=== PATIENT | male | born 1930 | race Two or more races ===

== ENCOUNTER 2017-11-21 12:14 | Emergency (ER) | payer OTHER ==
[2017-11-21 12:38] LABS: BASO % 0 % (0-3); EOS % 0 % (0-3); HEMATOCRIT 34.6 % (39.0-53.0); HEMOGLOBIN 11.2 g/dL (13.0-17.5); LYMPH # 0.3 x10^3/uL (1.0-4.8); LYMPH % 5 % (24-48); MEAN CORPUSCULAR HEMOGLOBIN 29 pg (25-35); MEAN CORPUSCULAR HGB CONC 33 g/dL (31-37); MEAN CORPUSCULAR VOLUME 88 fL (79-100); MONO # 0.1 x10^3/uL (0.0-1.1); MONO % 2 % (0-9); NEUT # 5.9 x10^3uL (1.8-7.7); NEUT % 93 % (31-73); PLATELET COUNT 153 x10^3/uL (140-400); RED BLOOD COUNT 3.92 x10^6/uL (4.30-5.70); RED CELL DISTRIBUTION WIDTH 17.9 % (11.5-14.5); WHITE BLOOD COUNT 6.3 x10^3/uL (4.0-11.0)
[2017-11-21 12:47] LABS: ADD MAN DIFF? YES
[2017-11-21 12:50] LABS: ANION GAP 8 (6-14); BLOOD UREA NITROGEN 23 mg/dL (8-26); CALCIUM 8.7 mg/dL (8.5-10.1); CARBON DIOXIDE 28 mmol/L (21-32); CHLORIDE 102 mmol/L (98-107); CREATININE 1.7 mg/dL (0.7-1.3); GFR 38.3; GLUCOSE 96 mg/dL (70-99); POTASSIUM 4.5 mmol/L (3.5-5.1); SODIUM 138 mmol/L (136-145)
[2017-11-21 12:54] LABS: INR 1.6 (0.8-1.1); PROTHROMBIN TIME PATIENT 18.4 SEC (11.7-14.0)
[2017-11-21 12:57] LABS: LACTIC ACID 2.5 mmol/L (0.4-2.0)
[2017-11-21 13:03] LABS: ALBUMIN 3.5 g/dL (3.4-5.0); ALK PHOS 161 U/L (46-116); ALT (SGPT) 27 U/L (16-63); AST (SGOT) 32 U/L (15-37); LIPASE 73 U/L (73-393); TOTAL BILIRUBIN 2.2 mg/dL (0.2-1.0); TOTAL PROTEIN 7.3 g/dL (6.4-8.2)
[2017-11-21 13:05] LABS: THYROID STIM HORMONE (TSH) 1.669 uIU/mL (0.358-3.74)
[2017-11-21 13:07] LABS: INFLUENZA A PATIENT NEGATIVE (NEGATIVE); INFLUENZA B PATIENT NEGATIVE (NEGATIVE); OBC FLU VALID
[2017-11-21 13:20] LABS: CKMB INDEX 0.8 % (0-4); CKMB MASS 1.3 ng/mL (0.0-3.6); CREATINE KINASE 172 U/L (39-308)
[2017-11-21 13:20] LABS: NT-PRO BNP 2488 pg/mL (0-449)
[2017-11-21 13:30] LABS: % BANDS 11 % (0-9); % LYMPHS 2 % (24-48); % MONOS 3 % (0-10); % SEGS 84 % (35-66); PLT ESTIMATE ADEQUATE (ADEQUATE); POLYCHROMASIA SLIGHT
[2017-11-21 13:31] LABS: ANISOCYTOSIS SLIGHT; HYPOCHROMIA SLIGHT; POIKILOCYTOSIS SLIGHT
[2017-11-21 14:35] LABS: BILIRUBIN,URINE NEGATIVE (NEG); CLARITY,URINE CLEAR; COLOR,URINE YELLOW; GLUCOSE,URINE NEGATIVE (NEG); NITRITE,URINE NEGATIVE (NEG); PH,URINE 5.5; PROTEIN,URINE NEGATIVE (NEG-TRACE); UROBILINOGEN,URINE 0.2 mg/dL (0.2 mg/dL)
[2017-11-21 14:42] LABS: BACTERIA,URINE 0 /HPF (0-FEW); HYALINE CASTS, URINE OCCASIONAL /HPF; SQUAMOUS EPITHELIAL CELL,UR OCC /LPF; WBC,URINE 0 /HPF (0-4)
[2017-11-21 14:48] LABS: AMPHETAMINE/METHAMPHETAMINE NEG (NEG); BARBITURATES NEG (NEG); BENZODIAZEPINES NEG (NEG); CANNABINOIDS NEG (NEG); COCAINE NEG (NEG); ETHANOL, URINE NEG (NEG); METHADONE NEG (NEG); OPIATES NEG (NEG); PHENCYCLIDINE NEG (NEG)
[2017-11-21] MEDS: METOPROLOL TARTRATE 5 MG/5 ML VIAL. IVP (15:26)
[2017-11-21 15:35] LABS: TROPONIN BY ISTAT 0.01 ng/ml (<0.08)
== END 2017-11-21 15:30 | disposition short-term general hospital (02) ==
LOC: ER 15:30
DX: I50.9 Heart failure, unspecified (principal); E80.7 Disorder of bilirubin metabolism, unspecified; I48.91 Unspecified atrial fibrillation; R74.0 Nonspecific elevation of levels of transaminase and lactic acid dehydrogenase [LDH]; D72.825 Bandemia; Z91.14 Patient's other noncompliance with medication regimen; R50.9 Fever, unspecified; Z95.0 Presence of cardiac pacemaker; Z98.890 Other specified postprocedural states; Z95.1 Presence of aortocoronary bypass graft
CPT/HCPCS: 36415; 71045; 80048; 80076; 80307; 81001; 82553; 83605; 83690; 83735; 83880; 84443; 84484; 85007; 85025; 85610; 87804; 87804-59; 93005; 96374; 99285-25; J3490